=== PATIENT | male | born 1965 | race African-American/Black ===

== ENCOUNTER 2024-03-02 12:46 | Emergency (ER) | payer OTHER ==
[~2024-03-02] VITALS: Ht 172.7 cm; Wt 99.8 kg
[2024-03-02 12:49] VITALS: O2SAT 100
[2024-03-02] MEDS ORDERED: ALLO100T MT (16:15)
[2024-03-02] MEDS ORDERED: COLC0.6C3 MT (16:15)
[2024-03-02] MEDS: KETOROLAC 30MG/ML VIAL IM ONE (17:07)
[2024-03-02 17:09] VITALS: BP 139/76; PULSE 97; RESP 16; TEMP 37.05852; O2SAT 100
== END 2024-03-02 17:51 | disposition home or self-care (01) ==
LOC: ER 13:39
DX: M10.072 Idiopathic gout, left ankle and foot (principal); Z79.899 Other long term (current) drug therapy
CPT/HCPCS: 99283; 96372; J1885